=== PATIENT | male | born 1945 | race Caucasian/White ===

== ENCOUNTER 2017-08-30 20:22 | Emergency (ER) | payer SELFPAY ==
[~2017-08-30] VITALS: Ht 172.7 cm; Wt 100.0 kg
[2017-08-30 20:26] VITALS: BP 172/92; PULSE 100; RESP 16; TEMP 97.9; O2SAT 96
[2017-08-30] MEDS ORDERED: LISI2.5T3 PO (20:45)
[2017-08-30] MEDS ORDERED: ATOR40TA16 PO (20:45)
[2017-08-30 21:51] LABS: BILIRUBIN, URINE NEG (NEG); BLOOD, URINE NEG (NEG); GLUCOSE,URINE NEG (NEG); KETONE, URINE NEG (NEG); NITRITE,URINE NEG (NEG); SQUAMOUS EPITHELIAL CELL URINE <1 /hpf (0-5); URINE COLOR LIGHT-YELLOW (YELLW/STRAW); URINE LEUKOCYTE ESTERASE NEG (NEG)
--- NOTE | 2017-08-30 21:53 | PD ---
HPI Chief Complaint: Complaint Time Seen by Provider: 20:49 Travel History International Travel<30 days: No Contact w/Intl Traveler<30days: No Traveled to known affect area: No History of Present Illness HPI 71-year-old male that presents to the ED for evaluation of inability to urinate for a couple of hours. Per patient has a history of enlarged prostate. Per patient has had this issue in April and had to have a Song catheter placed by his urologist. Per patient has been doing well has been taking new medications that seem to be helping. Per patient today he drank a couple of beers and then he noticed that he could not urinate. Per patient he has pain on his bladder and feels like he has to urinate but has no relief. Per patient before this happened he was able to urinate fine with no issues. He states that currently his pain is 7 out of 10 and he feels more like pressure. Per patient he is here because he knows he needs a Song otherwise he will not get better. He denies any back pain or neck pain. No chills or fevers. PFSH Past Medical History High Cholesterol: Yes Hypertension: Yes Influenza Vaccination: Yes Past Surgical History Other Surgery: Yes (INGUINAL HERNIA) Social History Alcohol Use: Yes (SOCIAL) Tobacco Use: No Substance Use: No Allergies-Medications (Allergen,Severity, Reaction): Coded Allergies: No Known Allergies (Unverified , 08/30/17) Reported Meds & Prescriptions Reported Meds & Active Scripts Active Reported Atorvastatin (Atorvastatin Calcium) 40 Mg Tab 40 Mg PO HS Lisinopril 2.5 Mg Tab Unknown Dose PO DAILY Review of Systems Except as stated in HPI: all other systems reviewed are Neg Physical Exam Narrative GENERAL: SKIN: Warm and dry. HEAD: Atraumatic. Normocephalic. EYES: Pupils equal and round. No scleral icterus. No injection or drainage. ENT: No nasal bleeding or discharge. Mucous membranes pink and moist. Tongue is midline. No uvula deviation NECK: Trachea midline. No JVD. CARDIOVASCULAR: Regular rate and rhythm. No murmurs, S3, S4. RESPIRATORY: No accessory muscle use. Clear to auscultation. Breath sounds equal bilaterally. GASTROINTESTINAL: Abdomen soft, non-tender, nondistended. Hepatic and splenic margins not palpable. MUSCULOSKELETAL: Extremities without clubbing, cyanosis, or edema. No obvious deformities. Full range of motion of the upper and lower extremities bilaterally. 2+ pulses bilaterally. NEUROLOGICAL: Awake and alert. No obvious cranial nerve deficits. Motor grossly within normal limits. Five out of 5 muscle strength in the arms and legs. Normal speech. PSYCHIATRIC: Appropriate mood and affect; insight and judgment normal. Data Data Last Documented VS Vital Signs Date Time Temp Pulse Resp B/P (MAP) Pulse Ox O2 Delivery O2 Flow Rate FiO2 08/30/17 20:26 97.9 100 16 172/92 (118) 96 Room Air Orders Orders Urinary Catheter Insert/Apply (08/30/17 20:50) Urinalysis - C+S If Indicated (08/30/17 20:50) Labs Laboratory Tests Test 08/30/17 21:17 MDM Medical Decision Making Medical Screen Exam Complete: Yes Emergency Medical Condition: Yes Medical Record Reviewed: Yes Differential Diagnosis Urinary obstruction versus prostate issue versus UTI Narrative Course 71-year-old male who presents to the ED for evaluation of possible urinary obstruction. Patient was properly evaluated and was found to have signs and symptoms consistent with this. Urinary Song was placed by ED nurse with improvement of symptoms. Patient feels better. Urine did not show any signs of infection. Patient was reassured. This time patient was put on a leg bag and told that he needs to follow his urologist. See ED worsening symptoms. Follow-up with PCP. He agrees with plan. Diagnosis Primary Impression: Urinary obstruction Patient Instructions: General Instructions Additional Instructions: Follow-up with urologist. See ED if worsening symptoms. Med/Other Pt SpecificInfo: No Change to Meds Disposition: 01 DISCHARGE HOME Condition: Stable Vik Gilman Aug 30, 2017 21:53
== END 2017-08-30 22:17 | disposition home or self-care (01) ==
LOC: NEPE 20:22
DX: N13.9 Obstructive and reflux uropathy, unspecified (principal); E78.00 Pure hypercholesterolemia, unspecified; I10 Essential (primary) hypertension; Z79.899 Other long term (current) drug therapy
CPT/HCPCS: 51702; 81001